=== PATIENT | female | born 1950 | race African-American/Black ===

== ENCOUNTER 2020-01-26 15:11 | Outpatient (CLI) | payer MEDICARE, SELFPAY ==
--- NOTE | 2020-01-26 15:20 | MM_ITS ---
WS: [id number] SCREENING DIGITAL MAMMOGRAM WITH CAD HISTORY: SCREENING COMPARISON: 11/26/2018 and 07/24/2017 Bilateral CC and MLO views submitted. Computer aided detection analyzed. Breast composition: There are scattered areas of fibroglandular density. No suspicious masses, microc alcifications or architectural distortion. MM/[id number] IMPRESSION: BI-RADS: 1-Negative FOLLOW UP: 1 Year Follow-up
== END 2020-01-26 15:12 | disposition home or self-care (01) ==
LOC: RADSHAW 15:18
PROVIDERS: PCP Nurse Practitioner; Visit Provider Family Medicine
DX: Z12.31 Encounter for screening mammogram for malignant neoplasm of breast (principal)
CPT/HCPCS: 77067

== ENCOUNTER → 2020-04-06 08:37 | Outpatient (BNVA) | payer MEDICARE, SELFPAY | PROVIDERS: PCP Nurse Practitioner; Visit Provider Family Medicine | DX: I10 Essential (primary) hypertension (principal); E78.2 Mixed hyperlipidemia; E11.9 Type 2 diabetes mellitus without complications | CPT/HCPCS: 80053; 80061; 82043; 83036; 85025 ==

== ENCOUNTER → 2020-05-06 10:23 | Outpatient (BNVA) | payer MEDICARE, SELFPAY | PROVIDERS: PCP Nurse Practitioner; Visit Provider Family Medicine | DX: R79.89 Other specified abnormal findings of blood chemistry (principal) | CPT/HCPCS: 85025 ==

== ENCOUNTER 2020-06-15 09:22 | Outpatient (CLI) | payer MEDICARE, SELFPAY ==
[2020-06-15 11:00] LABS: Basophils % 0.3 %; Eosinophils # 0.2 10^3/uL (0.0-0.8); Eosinophils % 4.9 %; Hematocrit 35.3 % (37.0-47.0); Hemoglobin 11.7 g/dL (11.5-15.3); Lymphocytes # 1.5 10^3/uL (0.8-4.8); Mean Corpuscular HGB Conc 33.1 g/dL (30.0-36.0); Mean Corpuscular Hemoglobin 31.6 pg (28.0-34.0); Mean Corpuscular Volume 95.4 fL (81-99); Mean Platelet Volume 9.8 fL (7.4-10.4); Monocytes # 0.3 10^3/uL (0.2-0.9); Monocytes % 9.7 %; Neutrophils # 1.11 10^3/uL (1.8-7.7); Neutrophils % 36.1 %; Nucleated Red Blood Cells % 0 %; Platelet Count 217 10^3/cmm (130-400); White Blood Count 3.1 10^3/uL (4.0-10.0)
[2020-06-15 12:29] LABS: LAB Peripheral Smear Sent for Review
[2020-06-15 13:02] LABS: Ferritin 301 ng/mL (15-150); Iron 103 ug/dL (37-145); Thyroid Stimulating Hormone 1.88 uIU/mL (0.27-4.20); Total Iron Binding Capacity 234 mcg/dl; Unsaturated Iron Binding 131 ug/dL (112-347); Vitamin B12 708 pg/mL (232-1245)
--- NOTE | 2020-06-15 15:23 | ONC CON_ITS ---
Dr. Guthrie New Patient Note Patient: Aminata Mejía Unit #: [id number]: [id number] Dicatated By: Mo Guthrie M.D.Date of Visit: Jun 15, 2020 Onc MED New Patient/Consult Referring Physician: Dr. RONAK ESCOBAR D.O. History of Present Illness: Ms. Aminata Mejía, is a 70-year-old female with a history of hypertension, hyperlipidemia, type 2 diabetes mellitus who was recently found to have mild leukopenia/neutropenia during her routine follow-up in March 2020, CBC done on April 06, 2020 showed white blood count 3.2 hemoglobin 12.7 hematocrit 38.3 platelets 229,000 with mild neutropenia ANC was 1290 normal being [id number] and repeat CBC done on May 06, 2020 showed white blood count 3.3 hemoglobin 13.1 hematocrit 40.2 platelets 221,000 MCV 97.8 and absolute neutrophil count 1160 Patient has no history of neutropenia or leukopenia or any other blood disorder prior to that but recently diagnosed with COVID-19 infection on May 22, 2020, she did not require hospitalization. Patient denies alcohol use or smoking. Denies any night sweats or weight loss or recurrent fevers, no abdominal fullness or history of recurrent UTI or sinus problem. Past Medical History: Ms. Mejía's medical history consists of hyperlipidemia, hypertension, and type II diabetes. Past Surgical History: Ms. Mejía's surgical history is unremarkable. Medications: amLODIPine Besylate 1 Tablet (of 10 mg) Oral daily, metFORMIN HCl 1 Tablet (of 500 mg) Oral b.i.d., Potassium Chloride ER 1 Tablet (of 20 meq) Tablet, controlled release Oral daily, Pravastatin Sodium 1 Tablet (of 20 mg) Oral daily, Valsartan 1 Tablet (of 160 mg) Oral daily Allergies: No Known Allergies. Social History: Ms. Mejía is . Ms. Mejía has never smoked. She has no history of drinking. Family History: Ms. Mejía's mother is : stroke. Ms. Mejía's father is . Review Of Symptoms: Constitutional - Appetite is poor and weight is stable. No fever, night sweats, or hot flashes. Energy is poor, ENMT - No sinus congestion/drainage. No mouth sores. No sore throat or difficulty swallowing, Hematologic/Lymphatic - No abnormal bruising or bleeding, Respiratory - No shortness of breath. Positive for cough. No pleuritic pain or hemoptysis, Cardiovascular - No angina pain. No palpitations, Gastrointestinal - No nausea or vomiting. No heartburn or acid reflux. No diarrhea or constipation. No blood in the stool or black stools, Genitourinary (F) - No dysuria or hematuria. No urinary frequency. No urgency or incontinence, Musculoskeletal - No joint or bone pain, Neurologic - No headache or dizziness. No numbness or tingling. No other focal neurologic symptoms, Psychiatric - No anxiety or depression. No insomnia. Vital Signs: Most recent vitals are not available for this patient. Performance Status: 1 - No physically strenuous activity, but ambulatory and able to carry out light or sedentary work (e.g. office work, light house work). (ECOG) Physical Examination: ENMT - Patient denies any mouth sores thrush or jaundice, Respiratory - Patient denies any shortness of breath or wheezing, Cardiovascular - Patient denies any palpitation or tachycardia, Abdomen - Patient denies any abdominal pain or fullness, Extremities - Patient denies any lower extremity edema. Lab/Imaging: Most recent lab results are not available for this patient. Impression: Isolated mild/moderate leukopenia/neutropenia etiology unclear could be multifactorial e.g. drug-induced leukopenia drugs like JEWEL inhibitor, statins and even Metformin can cause B12 deficiency which in return can cause leukopenia/neutropenia. Other possibility could be underlying subclinical infection, in May 2020 patient was diagnosed with COVID-19 infection, or cyclical neutropenia leukopenia or considering her age underlying early myelodysplasia cannot be ruled out. Hypertension, on valsartan Diabetes mellitus on Metformin Hyperlipidemia on pravastatin Plan: Discussed with patient regarding her labs white blood count 3.1 hemoglobin 11.9 hematocrit 35.3 platelets 217,000 ANC 1110 Clinically, patient is doing well with no new signs symptoms except chronic dry cough since she was diagnosed with COVID-19 infection in May 2020. Her lab work-up done today shows persistent mild/moderate leukopenia/neutropenia, as mentioned earlier etiology could be multifactorial including subclinical infection like patient was recently confirmed with COVID-19 infection other possibility could be nutritional like B12 deficiency as Metformin can interfere with B12 metabolism. Other possibility, considering her age, early MDS cannot be ruled out. At this point, will review her peripheral blood smear and check B12 level and iron, folate and TSH and SPEP and then patient was advised to hold pravastatin for 2 weeks and then return to clinic in 2 weeks with CBC if initial work-up remained inconclusive and no improvement in her leukopenia, then will consider Abdominal sonogram to assess spleen size and holding valsartan but will discuss with PMD regarding monitoring her blood pressure and if no improvement then will consider bone marrow evaluation. Return to clinic in 2 weeks with CBC with differential Signed By: Mo Guthrie M.D. <<Signature on File>>
== END 2020-06-15 09:23 | disposition home or self-care (01) ==
PROVIDERS: PCP Family Medicine; Visit Provider Internal Medicine Hematology & Oncology
DX: D70.9 Neutropenia, unspecified (principal); D64.9 Anemia, unspecified; I10 Essential (primary) hypertension; E11.9 Type 2 diabetes mellitus without complications; E78.5 Hyperlipidemia, unspecified; Z86.19 Personal history of other infectious and parasitic diseases; Z79.84 Long term (current) use of oral hypoglycemic drugs; Z79.899 Other long term (current) drug therapy
CPT/HCPCS: 80500; 82607; 82728; 83540; 83550; 84443; 85025; 99203

== ENCOUNTER 2020-06-17 09:54 | Outpatient (CLI) | payer MEDICARE, SELFPAY ==
[2020-06-17 12:49] LABS: Folate Level > 20.0 ng/mL (4.8-37.3)
[2020-06-20 15:22] LABS: ALBUMIN 3.7 g/dL (3.8-4.8); ALPHA 1 GLOBULIN 0.3 g/dL (0.2-0.3); ALPHA 2 GLOBULIN 0.9 g/dL (0.5-0.9); BETA 1 GLOBULIN 0.4 g/dL (0.4-0.6); BETA 2 GLOBULIN 0.5 g/dL (0.2-0.5); GAMMA GLOBULIN 1.2 g/dL (0.8-1.7)
== END 2020-06-17 09:55 | disposition home or self-care (01) ==
LOC: ONCMED 09:54
PROVIDERS: PCP Family Medicine; Visit Provider Internal Medicine Hematology & Oncology
DX: D70.9 Neutropenia, unspecified (principal); D72.819 Decreased white blood cell count, unspecified
CPT/HCPCS: 36415; 82746; 84155; 84165

== ENCOUNTER 2020-06-27 06:11 | Outpatient (CLI) | payer MEDICARE, SELFPAY ==
[2020-06-27 15:14] LABS: Basophils % 0.7 %; Eosinophils # 0.2 10^3/uL (0.0-0.8); Eosinophils % 4.2 %; Hemoglobin 12.8 g/dL (11.5-15.3); Lymphocytes # 2.4 10^3/uL (0.8-4.8); Lymphocytes % 52.1 %; Mean Corpuscular HGB Conc 32.8 g/dL (30.0-36.0); Mean Corpuscular Volume 97.5 fL (81-99); Mean Platelet Volume 9.8 fL (7.4-10.4); Monocytes # 0.4 10^3/uL (0.2-0.9); Monocytes % 9.4 %; Neutrophils # 1.54 10^3/uL (1.8-7.7); Neutrophils % 33.6 %; Nucleated Red Blood Cells % 0 %; Platelet Count 215 10^3/cmm (130-400); Red Cell Distribution Width 13.7 % (12.1-15.1); White Blood Count 4.6 10^3/uL (4.0-10.0)
== END 2020-06-27 06:12 | disposition home or self-care (01) ==
LOC: ONCMED 06:14
PROVIDERS: PCP Family Medicine; Visit Provider Internal Medicine Hematology & Oncology
DX: D70.9 Neutropenia, unspecified (principal); D72.819 Decreased white blood cell count, unspecified
CPT/HCPCS: 36415; 85025

== ENCOUNTER 2020-06-28 05:55 | Outpatient (CLI) | payer MEDICARE, SELFPAY ==
--- NOTE | 2020-06-28 09:26 | ONC FU_ITS ---
Dr. Guthrie follow up note Patient: Aminata Mejía Unit #: [id number]: 1950 Dicatated By: Mo Guthrie M.D.Date of Visit:Jun 28, 2020 Onc Med Follow-up/Prog Note History of Present Illness: Ms. Aminata Mejía, is a 70-year-old female with a history of hypertension, hyperlipidemia, type 2 diabetes mellitus who was recently found to have mild leukopenia/neutropenia during her routine follow-up in March 2020, CBC done on April 06, 2020 showed white blood count 3.2 hemoglobin 12.7 hematocrit 38.3 platelets 229,000 with mild neutropenia ANC was 1290 normal being [id number] and repeat CBC done on May 06, 2020 showed white blood count 3.3 hemoglobin 13.1 hematocrit 40.2 platelets 221,000 MCV 97.8 and absolute neutrophil count 1160 Patient has no history of neutropenia or leukopenia or any other blood disorder prior to that but recently diagnosed with COVID-19 infection on May 22, 2020, she did not require hospitalization. Patient denies alcohol use or smoking. Denies any night sweats or weight loss or recurrent fevers, no abdominal fullness or history of recurrent UTI or sinus problem. Came for follow-up, denies any specific complaints, no fever chills, no nausea or vomiting, no diarrhea or constipation, more energetic, recovering from Covid 19 infection well. Medications: amLODIPine Besylate 1 Tablet (of 10 mg) Oral daily, metFORMIN HCl 1 Tablet (of 500 mg) Oral b.i.d., Potassium Chloride ER 1 Tablet (of 20 meq) Tablet, controlled release Oral daily, Pravastatin Sodium 1 Tablet (of 20 mg) Oral daily, Valsartan 1 Tablet (of 160 mg) Oral daily Allergies: No Known Allergies. Review of Systems: Constitutional - Appetite is poor and weight is stable. No fever, night sweats, or hot flashes. Energy is fair, ENMT - No sinus congestion/drainage. No mouth sores. No sore throat or difficulty swallowing, Hematologic/Lymphatic - No abnormal bruising or bleeding, Respiratory - No shortness of breath. Positive for cough. No pleuritic pain or hemoptysis, Cardiovascular - No angina pain. No palpitations, Gastrointestinal - No nausea or vomiting. No heartburn or acid reflux. No diarrhea or constipation. No blood in the stool or black stools, Genitourinary (F) - No dysuria or hematuria. No urinary frequency. No urgency or incontinence, Musculoskeletal - No joint or bone pain, Neurologic - No headache or dizziness. No numbness or tingling. No other focal neurologic symptoms, Psychiatric - No anxiety or depression. No insomnia. Vital Signs: Performed on Jun 28, 2020 08:32 Height - 68 in Weight - 209.3 lbs (HIGH) BSA - 2.08 sq.m BMI - 31.82 (HIGH) Temperature - 97.0 F (LOW) Pulse - 92 /min Respiration - 16 /min BP - 144/87 mm(hg) (HIGH) O2 Sat - 99 % Pain - 0 Performance Status: 0 - Fully active, able to carry on all predisease activities without restrictions. (ECOG) Physical Examination: ENMT - No mouth sores, no thrush, no jaundice, Respiratory - Lungs are clear to auscultation, Cardiovascular - Regular rate and rhythm of heart, Abdomen - Soft, bowel sounds present, Extremities - No visible edema. Lab/Imaging: Test performed on Jun 17, 2020 10:04 Folate, Serum > 20.0 ng/mL Test performed on Jun 17, 2020 09:58 Manual Diff ERROR-ALREADY DONE Test performed on Jun 15, 2020 10:24 Ferritin 301 ng/mL Iron 103 mcg/dL TSH 1.88 uIU/mL Vitamin B12 708 pg/mL Iron Binding Capacity (TIBC) 234 mcg/dl % Iron Saturation 44.0 % UIBC 131 mcg/dL Neutrophils 1.11 10 3/uL Eosinophils 0.2 10 3/uL Basophils 0.0 10 3/uL Neutrophil % 36.1 % Eosinophil % 4.9 % Basophils % 0.3 % NRBC % 0 % Impression: Isolated mild/moderate leukopenia/neutropenia etiology unclear could be multifactorial e.g. drug-induced leukopenia drugs like JEWEL inhibitor, statins and even Metformin can cause B12 deficiency which in return can cause leukopenia/neutropenia. Other possibility could be underlying subclinical infection, in May 2020 patient was diagnosed with COVID-19 infection, or cyclical neutropenia leukopenia or considering her age underlying early myelodysplasia cannot be ruled out. Hypertension, on valsartan Diabetes mellitus on Metformin Hyperlipidemia on pravastatin Plan: Discussed with patient regarding her labs, white blood count 4.6 compared to 3100 on June 15, 2020, hemoglobin 12.8 hematocrit 39 platelets 215,000 ANC 1540 compared to 1110 on June 15, 2020, ferritin 301, B12 708, TSH 1.88 folate more than 20, SPEP no monoclonal gammopathy, peripheral smear showed no aberrant cell but neutropenia/leukopenia Clinically, patient doing well with no new signs symptoms or follow-up labs shows normalization of total white blood cell and improvement in neutrophil otherwise remaining CBC within normal range Other initial work-up including iron studies, B12/folate level/TSH/SPEP/peripheral blood smear showed no obvious abnormality. As her leukopenia has resolved and neutrophil count is improving with normal hemoglobin and platelet count, at this point, we will monitor and she will return to clinic in 1 month with CBC Signed By: Mo Guthrie M.D. <<Signature on File>>
== END 2020-06-28 05:56 | disposition home or self-care (01) ==
LOC: ONCMED 05:57
PROVIDERS: PCP Family Medicine; Visit Provider Internal Medicine Hematology & Oncology
DX: D70.9 Neutropenia, unspecified (principal); I10 Essential (primary) hypertension; E11.9 Type 2 diabetes mellitus without complications; E78.5 Hyperlipidemia, unspecified; Z79.84 Long term (current) use of oral hypoglycemic drugs; Z79.899 Other long term (current) drug therapy; Z86.19 Personal history of other infectious and parasitic diseases
CPT/HCPCS: G0463

== ENCOUNTER 2020-07-26 09:25 | Outpatient (CLI) | payer MEDICARE, SELFPAY ==
[2020-07-26 09:48] LABS: Basophils % 0.5 %; Eosinophils # 0.2 10^3/uL (0.0-0.8); Eosinophils % 4.8 %; Hematocrit 40.6 % (37.0-47.0); Hemoglobin 13.3 g/dL (11.5-15.3); Lymphocytes # 2.2 10^3/uL (0.8-4.8); Lymphocytes % 58.9 %; Mean Corpuscular HGB Conc 32.8 g/dL (30.0-36.0); Mean Corpuscular Hemoglobin 31.4 pg (28.0-34.0); Mean Platelet Volume 9.6 fL (7.4-10.4); Monocytes # 0.3 10^3/uL (0.2-0.9); Neutrophils # 1.05 10^3/uL (1.8-7.7); Neutrophils % 27.8 %; Nucleated Red Blood Cells % 0 %; Platelet Count 212 10^3/cmm (130-400); Red Blood Count 4.23 10^6/uL (4.1-5.3); Red Cell Distribution Width 12.4 % (12.1-15.1); White Blood Count 3.8 10^3/uL (4.0-10.0)
== END 2020-07-26 09:26 | disposition home or self-care (01) ==
LOC: ONCMED 09:28
PROVIDERS: PCP Family Medicine; Visit Provider Internal Medicine Hematology & Oncology
DX: D70.9 Neutropenia, unspecified (principal); D72.819 Decreased white blood cell count, unspecified
CPT/HCPCS: 36415; 85025

== ENCOUNTER 2020-07-27 05:52 | Outpatient (CLI) | payer MEDICARE, SELFPAY ==
--- NOTE | 2020-07-27 09:32 | ONC FU_ITS ---
Dr. Guthrie follow up note Patient: Aminata Mejía Unit #: [id number]: 1950 Dicatated By: Mo Guthrie M.D.Date of Visit:Jul 27, 2020 Onc Med Follow-up/Prog Note History of Present Illness: Ms. Aminata Mejía, is a 70-year-old female with a history of hypertension, hyperlipidemia, type 2 diabetes mellitus who was recently found to have mild leukopenia/neutropenia during her routine follow-up in March 2020, CBC done on April 06, 2020 showed white blood count 3.2 hemoglobin 12.7 hematocrit 38.3 platelets 229,000 with mild neutropenia ANC was 1290 normal being 7525-0214 and repeat CBC done on May 06, 2020 showed white blood count 3.3 hemoglobin 13.1 hematocrit 40.2 platelets 221,000 MCV 97.8 and absolute neutrophil count 1160 Patient has no history of neutropenia or leukopenia or any other blood disorder prior to that but recently diagnosed with COVID-19 infection on May 22, 2020, she did not require hospitalization. Patient denies alcohol use or smoking. Denies any night sweats or weight loss or recurrent fevers, no abdominal fullness or history of recurrent UTI or sinus problem. Came for follow-up, denies any specific complaints, no fever chills, no nausea or vomiting, no diarrhea constipation, no sore throat, no dysuria, no cough. Medications: amLODIPine Besylate 1 Tablet (of 10 mg) Oral daily, metFORMIN HCl 1 Tablet (of 500 mg) Oral b.i.d., Potassium Chloride ER 1 Tablet (of 20 meq) Tablet, controlled release Oral daily, Pravastatin Sodium 1 Tablet (of 20 mg) Oral daily, Valsartan 1 Tablet (of 160 mg) Oral daily Allergies: No Known Allergies. Review of Systems: Constitutional - Appetite is poor and weight is stable. No fever, night sweats, or hot flashes. Energy is fair, ENMT - No sinus congestion/drainage. No mouth sores. No sore throat or difficulty swallowing, Hematologic/Lymphatic - No abnormal bruising or bleeding, Respiratory - No shortness of breath. Positive for cough. No pleuritic pain or hemoptysis, Cardiovascular - No angina pain. No palpitations, Gastrointestinal - No nausea or vomiting. No heartburn or acid reflux. No diarrhea or constipation. No blood in the stool or black stools, Genitourinary (F) - No dysuria or hematuria. No urinary frequency. No urgency or incontinence, Musculoskeletal - No joint or bone pain, Neurologic - No headache or dizziness. No numbness or tingling. No other focal neurologic symptoms, Psychiatric - No anxiety or depression. No insomnia. Vital Signs: Performed on Jul 27, 2020 08:53 Height - 68.00 in Weight - 211.0 lbs (HIGH) BSA - 2.09 sq.m BMI - 32.08 (HIGH) Temperature - 97.3 F (LOW) Pulse - 98 /min Respiration - 16 /min BP - 178/88 mm(hg) (HIGH) O2 Sat - 99 % Pain - 0 Performance Status: 0 - Fully active, able to carry on all predisease activities without restrictions. (ECOG) Physical Examination: ENMT - No mouth sores, no thrush, no jaundice, Respiratory - Lungs are clear to auscultation, Cardiovascular - Regular rate and rhythm of heart, Abdomen - Soft, bowel sounds present, Extremities - No visible edema. Lab/Imaging: Test performed on Jul 26, 2020 09:38 WBC 3.8 10 3/uL RBC 4.23 10 6/uL HGB 13.3 g/dL HCT 40.6 % MCV 96.0 fL MCH 31.4 pg MCHC 32.8 g/dL RDW 12.4 % Platelet Count 212 10 3/cmm MPV 9.6 fL Neutrophils 1.05 10 3/uL Lymphocytes 2.2 10 3/uL Monocytes 0.3 10 3/uL Eosinophils 0.2 10 3/uL Basophils 0.0 10 3/uL Neutrophil % 27.8 % Lymphocyte % 58.9 % Monocyte % 8.0 % Eosinophil % 4.8 % Basophils % 0.5 % NRBC % 0 % Test performed on Jun 17, 2020 10:04 Folate, Serum > 20.0 ng/mL Test performed on Jun 17, 2020 09:58 Manual Diff ERROR-ALREADY DONE Test performed on Jun 15, 2020 10:24 Ferritin 301 ng/mL Iron 103 mcg/dL TSH 1.88 uIU/mL Vitamin B12 708 pg/mL Iron Binding Capacity (TIBC) 234 mcg/dl % Iron Saturation 44.0 % UIBC 131 mcg/dL Impression: Isolated mild/moderate leukopenia/neutropenia etiology unclear could be multifactorial e.g. drug-induced leukopenia drugs like JEWEL inhibitor, statins and even Metformin can cause B12 deficiency which in return can cause leukopenia/neutropenia. Other possibility could be underlying subclinical infection, in May 2020 patient was diagnosed with COVID-19 infection, or cyclical neutropenia leukopenia or considering her age underlying early myelodysplasia cannot be ruled out. Hypertension, on valsartan Diabetes mellitus on Metformin Hyperlipidemia on pravastatin Plan: Discussed with patient regarding her labs white blood count 3.8 hemoglobin 13.3 hematocrit 40.6 platelets 212,000 ANC 1050 Clinically, patient is doing reasonably well, no signs symptom suggestive of infection, follow-up labs shows fluctuating isolated mild neutropenia/leukopenia but with normal hemoglobin and platelets. Her initial work-up which include B12 level folate level TSH were within normal limits, at this point we will proceed with whole blood flow cytometry to rule out underlying myeloproliferative disorder, if it is normal and follow-up CBC shows progressive neutropenia/leukopenia then will consider bone marrow to rule out underlying myelodysplasia. Return to clinic in 1 month with CBC Signed By: Mo Guthrie M.D. <<Signature on File>>
[2020-08-12 13:07] LABS: Miscellaneous Test See Scanned Lab Rpt
== END 2020-07-27 05:53 | disposition home or self-care (01) ==
LOC: ONCMED 05:54
PROVIDERS: PCP Family Medicine; Visit Provider Internal Medicine Hematology & Oncology
DX: D70.9 Neutropenia, unspecified (principal); I10 Essential (primary) hypertension; E11.9 Type 2 diabetes mellitus without complications; Z79.84 Long term (current) use of oral hypoglycemic drugs; E78.5 Hyperlipidemia, unspecified; D72.819 Decreased white blood cell count, unspecified
CPT/HCPCS: 36415; 85025; 88184; 88185; G0463

== ENCOUNTER → 2020-09-14 09:45 | Outpatient (BNVA) | payer MEDICARE, SELFPAY | PROVIDERS: PCP Family Medicine; Visit Provider Family Medicine | DX: E11.9 Type 2 diabetes mellitus without complications (principal); I10 Essential (primary) hypertension; E78.2 Mixed hyperlipidemia; Z68.32 Body mass index [BMI] 32.0-32.9, adult | CPT/HCPCS: 80053; 83036 ==

== ENCOUNTER → 2021-05-11 10:46 | Outpatient (BNVA) | payer MEDICARE, SELFPAY | PROVIDERS: PCP Family Medicine; Visit Provider Family Medicine | DX: I10 Essential (primary) hypertension (principal); E78.2 Mixed hyperlipidemia; E11.9 Type 2 diabetes mellitus without complications | CPT/HCPCS: 80053; 80061; 82043; 83036; 85025 ==

== ENCOUNTER → 2021-11-08 10:14 | Outpatient (BNVA) | payer MEDICARE, SELFPAY | PROVIDERS: PCP Family Medicine; Visit Provider Family Medicine | DX: I10 Essential (primary) hypertension (principal); E78.2 Mixed hyperlipidemia; E11.9 Type 2 diabetes mellitus without complications; G47.10 Hypersomnia, unspecified; R30.0 Dysuria | CPT/HCPCS: 80053; 80061; 81000; 83036 ==

== ENCOUNTER → 2022-05-10 09:14 | Outpatient (BNVA) | payer MEDICARE, SELFPAY | PROVIDERS: PCP Family Medicine; Visit Provider Family Medicine | DX: I10 Essential (primary) hypertension (principal); E11.9 Type 2 diabetes mellitus without complications | CPT/HCPCS: 80053; 83036; 85025 ==

== ENCOUNTER 2022-05-30 10:45 | Outpatient (CLI) | payer MEDICARE, SELFPAY ==
--- NOTE | 2022-05-30 10:53 | MM_ITS ---
WS: [id number] BILATERAL SCREENING DIGITAL TOMOSYNTHESIS MAMMOGRAM WITH CAD HISTORY: screening mammogram COMPARISON: 01/26/2020 and 11/26/2018 Bilateral CC and MLO views with tomosynthesis and synthetic mammography submitted. Computer aided det ection analyzed. Breast composition: There are scattered areas of fibroglandular density. No suspicious masses, microc alcifications or architectural distortion. MM/[id number] IMPRESSION: BI-RADS: 1-Negative FOLLOW UP: 1 Year Follow-up
== END 2022-05-30 10:46 | disposition home or self-care (01) ==
LOC: RAD 10:46
PROVIDERS: PCP Family Medicine; Visit Provider Family Medicine
DX: Z12.31 Encounter for screening mammogram for malignant neoplasm of breast (principal)
CPT/HCPCS: 77063; 77067

== ENCOUNTER → 2022-11-29 09:12 | Outpatient (BNVA) | payer MEDICARE, SELFPAY | PROVIDERS: PCP Family Medicine; Visit Provider Family Medicine | DX: E11.9 Type 2 diabetes mellitus without complications (principal) | CPT/HCPCS: 80053; 82043; 82728; 83036; 83550; 85025 ==

== ENCOUNTER → 2023-05-16 11:57 | Outpatient (BNVA) | payer MEDICARE, SELFPAY | PROVIDERS: PCP Family Medicine; Visit Provider Family Medicine | DX: Z78.0 Asymptomatic menopausal state (principal); Z13.6 Encounter for screening for cardiovascular disorders; E11.9 Type 2 diabetes mellitus without complications; Z11.59 Encounter for screening for other viral diseases; Z00.00 Encounter for general adult medical examination without abnormal findings; Z12.31 Encounter for screening mammogram for malignant neoplasm of breast | CPT/HCPCS: 80053; 80061; 83036; 86803 ==

== ENCOUNTER 2023-06-03 17:50 | Emergency (ER) | payer MEDICARE, SELFPAY ==
[2023-06-03 17:55] VITALS: BP 148/82; PULSE 81; RESP 16; TEMP 37.1; O2SAT 99; BMI 28.1
--- NOTE | 2023-06-03 18:41 | W.ED.GENADLT ---
HPI - General Adult General: Chief complaint: General Medical Stated complaint: tongue swollen Time Seen by Provider: 06/03/23 18:41 History of Present Illness: 73-year-old female presents to the emergency department and states she was initially seen by her primary care provider because of worsening sore throat and swelling to the point where she was having difficulty swallowing. She states at present she is not having difficulty breathing but feels that her tongue and her uvula and the back of her throat are much bigger. She states that on 05/28/2023 she was seen and prescribed amoxicillin and steroids for 5 days. She states that she felt that her swelling initially got a little better then but then earlier today came back much worse she states now in order to swallow she has to hold the side of her throat and feels that her tongue is much larger than it has been in the past. She states that she still has a sore throat that she rates as a scratchy raw type feeling that is a 3 out of 10. Associated symptoms: Deny dyspnea Review of Systems General: Reports: 10 or more systems reviewed and unremarkable except in HPI and below ENMT: Reports: throat pain, enlarged tonsils, odynophagia and swelling of lips/tongue Resp: Denies: dyspnea, wheezing, stridor or pain on inspiration PFSH ED PFSH: Medical History Diabetes mellitus, type II Diagnosed in her 20s and is well controlled with medication. She thinks her last hemoglobin A1c was 6.3. Follows up with her primary care provider and does not see an preschool aide Hyperlipidemia Diagnosed in her 60s and is well controlled with medication managed by her primary care provider Hypertension Diagnosed in her 20s and is well controlled with medication managed by her primary care provider. 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 Gillespie Refusal of blood transfusions as patient is Judaism She states that she is a Judaism and brings in paperwork stating that she does not accept transfusions of whole blood red cells white cells platelets are plasma. Also states that she will not predonate blood. -Power of tax associate attorney scanned into the chart. Surgical History No pertinent past surgical history Family History Family/Other Breast cancer maternal aunt x 2, both diagnosed after age 50 Mother Diabetes Stroke Father Heart disease Hypertension Denies family history of Colon cancer Ovarian cancer Hyperlipidemia Uterine cancer Social History Smoking and tobacco/nicotine status: never used tobacco/nicotine Alcohol intake: never Substance/Drug Use: never Physical Exam Narrative: EXAM NARRATIVE: Constitutional: the patient appears well nourished and of normal development. Vital signs as documented. No acute distress at present. Alert and oriented-to person, place, time and situation. Head, eyes, ears, nose, mouth, throat: Normocephalic, atraumatic. Pupils-equal, round, reactive to light. No scleral icterus. Normal-appearing external ears. Normal appearing nasal turbinates, no drainage. No obvious oral lesions. Patient's tongue does appear to be moderately swollen and with a significantly swollen uvula. There is mild erythema to the posterior oropharynx without exudates. Neck: Supple, trachea is midline, no lymphadenopathy, no jugular venous distension, thyromegaly, or carotid bruits. Carotid upstrokes are brisk bilaterally. Anterior cervical chain lymphadenopathy noted bilaterally, greater on the left than the right Lungs: clear to auscultation to all lung tabares. Symmetrical rise and fall of chest, no obvious signs of increased work of breathing at present. Cardiac: Regular rate and rhythm, positive S1, S2. No murmurs, rubs or gallops that I can appreciate Abdomen: Soft, non-tender to palpation, normal active bowel sounds to all quadrants. No palpable masses, no organomegaly and abdominal bruits. Extremities: 2+ pulses in the upper extremities that are equal bilaterally, 2+ pulses in the lower extremities that are equal bilaterally. Non-edematous. Moves all extremities well, sensation to all extremities are noted. Skin: Warm, dry, intact. Course Reevaluation(s): Reevaluation #1: Patient states that she feels like her swelling in her throat is significantly improved. Reevaluation demonstrates decrease in the size of the uvula and the left palatine tonsil. Time: 19:31 Vital Signs: Vital signs: Vital Signs Temperature 98.8 F 06/03/23 17:55 Pulse Rate 76 06/03/23 19:49 Respiratory Rate 16 06/03/23 19:49 Blood Pressure 179/85 06/03/23 19:49 Pulse Oximetry 98 06/03/23 19:49 Oxygen Delivery Me thod Room Air 06/03/23 17:55 MDM - General Adult Medical Decision Making Physical exam completed and documented given the patient's significant posterior oropharynx swelling I will provide her steroids as well as histamine blockers and evaluate. Differential Diagnosis Viral pharyngitis, allergic reaction, Medical Records I reviewed the patient's medical records. No radiology studies performed this visit Discharge Plan Discharge Patient Disposition: Home Clinical Impression: Acute erythematous tonsillitis Condition: Stable Prescriptions: New hydroxyzine HCl 50 mg tablet 50 mg PO Q8H PRN (Reason: oral edema) Qty: 20 0RF prednisone 20 mg tablet 40 mg PO DAILY 5 Days Qty: 20 0RF Oral Relief Sore Throat [place] 1.4 % aerosol,spray 4 spray mucous membrane Q2H PRN (Reason: sore throat) Qty: 177 0RF No Action (DME) blood sugar diagnostic Strip See Rx Instructions .ROUTE .MEDSUPPLY Qty: 100 4RF Rx Instructions: once daily (DME) lancets [OneTouch UltraSoft Lancets] [facility] See Rx Instructions .ROUTE .MEDSUPPLY Qty: 100 4RF Rx Instructions: once daily (DME) OneTouch Ultra Test Strip See Rx Instructions .Route Qty: 100 3RF Rx Instructions: to use once daily in the one touch ultra blue meter 90 day supply metformin 500 mg tablet extended release 24 hr See Rx Instructions .ROUTE .COMPLEX Qty: 180 3RF Dose Instruction: TAKE 1 TABLET BY MOUTH TWICE DAILY Rx Instructions: TAKE 1 TABLET BY MOUTH TWICE DAILY valsartan-hydrochlorothiazide 160-25 mg tablet 1 tab PO DAILY Qty: 90 1RF amlodipine 10 mg tablet 10 mg PO QDAY 90 Days Qty: 90 1RF atorvastatin 40 mg tablet 40 mg PO .at bedtime Qty: 90 1RF potassium chloride 20 mEq tablet extended release 20 meq PO BID 90 Days Qty: 270 1RF Discharge Orders: Discharge ED (Routine); Ordered 06/03/23 Ordered By: Zeeshan May Referrals: Sun Gillespie DO [Primary Care Provider] - Discharge Diet: Advance as tolerated Discharge Activity: Resume usual activity Patient Instructions: Opioid Safety, Pain Management Activity Restrictions/Additional Instructions: Activity Restrictions/Additional Instructions: Thank you for choosing [facility] for your healthcare needs today. Please realize that you were seen in the Emergency Department and that we are providing you with an emergency medical screening exam and this may not be complete and all inclusive of all the testing and or medical work-up that you may need to determine your ailment or severity of your illness. It is very important that you follow-up as instructed with your Primary care provider or Specialist for additional evaluation and to discuss your medical treatment plan. You may return to the Emergency Department should you have concerns or if your condition changes or worsens in any way. Coding Level of Care Code ED Public Health Educator for Carolann Eddy
[2023-06-03] MEDS: methylPREDNISolone sod succ 125 mg/2 mL INJ IVP (19:10)
[2023-06-03] MEDS: famotidine 20 mg/2 mL INJ 40 MG IVP (19:10)
[2023-06-03] MEDS: diphenhydrAMINE 50 mg/mL SDV 1mL 25 MG IVP (19:11)
[2023-06-03 19:49] VITALS: BP 179/85; PULSE 76; RESP 16; O2SAT 98
== END 2023-06-03 19:51 | disposition home or self-care (01) ==
PROVIDERS: Emergency Provider Internal Medicine; PCP Family Medicine
DX: J03.80 Acute tonsillitis due to other specified organisms (principal); Z79.84 Long term (current) use of oral hypoglycemic drugs; E11.9 Type 2 diabetes mellitus without complications; E78.5 Hyperlipidemia, unspecified; I10 Essential (primary) hypertension
CPT/HCPCS: 96374; 96375; 99284; J1200; J2930; J3490

== ENCOUNTER 2023-06-05 13:42 | Outpatient (CLI) | payer MEDICARE, SELFPAY ==
--- NOTE | 2023-06-05 13:55 | MM_ITS ---
WS: [id number] BILATERAL 3D TOMOSYNTHESIS DIGITAL SCREENING MAMMOGRAPHY WITH CAD CLINICAL INFORMATION: screening HISTORY: Screening mammogram. No current complaints. COMPARISON: 2021 TECHNIQUE: Bilateral CC and MLO views. FINDINGS: Scattered fibroglandular densities bilaterally. No suspicious focal mass, asymmetry, calcifications, or architectural distortion. No evidence of malignancy. Punctate and lucent centered calcifications. IMPRESSION: MM/[place] [id number] BI-RADS: 2-Benign FOLLOW UP: 1 Year Follow-up Recommend return to annual screening mammography.
--- NOTE | 2023-06-05 14:30 | XR_ITS ---
WS: [id number] SCREENING DEXA SCAN [employer] CLINICAL INFORMATION: postmenopausal COMPARISON: None. FINDINGS: The L1-L4 bone mineral density measures 1.225 g/cm2. This corresponds to a T score score of 0.4 and Z score of 0.4. Left femoral neck bone mineral density measures 0.798 g/cm2. This corresponds to a T score of -1.7 an d Z score of -1.8. Right femoral neck bone mineral density measures 0.736 g/cm2. This corresponds to a T score -2.2of an d Z score of -2.3. Mean femoral neck bone mineral density measures 0.767 g/cm2. This corresponds to a T score of -1.9 an d Z score of -2.1. IMPRESSION: Normal bone mineralization lumbar spine. Osteopenia femoral necks. Patient's FRAX calculated 10 year probability for major osteoporotic fracture is 9.6% and osteoporoti c hip fracture is 2.5%.
== END 2023-06-05 13:43 | disposition home or self-care (01) ==
LOC: RAD 13:43
PROVIDERS: PCP Family Medicine; Visit Provider Family Medicine
DX: Z12.31 Encounter for screening mammogram for malignant neoplasm of breast (principal); Z13.820 Encounter for screening for osteoporosis; Z78.0 Asymptomatic menopausal state; M85.852 Other specified disorders of bone density and structure, left thigh; M85.851 Other specified disorders of bone density and structure, right thigh
CPT/HCPCS: 77063; 77067; 77080

== ENCOUNTER → 2023-08-29 08:41 | Outpatient (BNVA) | payer MEDICARE, SELFPAY | PROVIDERS: PCP Family Medicine; Visit Provider Family Medicine | DX: E11.9 Type 2 diabetes mellitus without complications (principal) | CPT/HCPCS: 80053; 80061; 83036 ==